=== PATIENT | male | born 1935 ===

== ENCOUNTER 2019-10-15 22:51 | Inpatient (IN) | payer MEDICARE ==
[~2019-10-15] VITALS: Ht 177.8 cm; Wt 92.7 kg
--- NOTE | ~2019-10-15 | HEMODYNAMI ---
PATIENT:ROSA MASSEY MEDICAL RECORD: [id number] : 35 LOCATION:[facility] D.[address] [facility]# [id number] ADMISSION DATE: 10/15/19 Generatedon:10/20/201910:31 Patient name: ROSA MASSEY Patient #: [id number] SSN: : Date of study: 10/20/2019 Page: Of Hemodynamic Procedure Report Patient Data Patient Demographics Procedure consent was obtained First Name: ROSA Gender: Male Last Name: SHILPA : 1935 Patient #: [id number] Age: 84 year(s) Race: Additional ID: [id number] Contact details Address: [address] [place] [address] TO [facility] [address] State: [place] City: [facility] Zip code: [address] Past Medical History Allergies: No known allergies Admission Admission Data Admission Date: 10/15/2019 Admission Time: 23:56 Arrival Date: 10/20/2019 Arrival Time: 0:00 Admit Source: Other Insurance Payor: Private Room #: D.2312 [facility] insurance [facility] #: [id number] Height (in.): 70 BSA: 2.06 (m2) Height (cm.): 177.8 BMI: 27.89 (kg/m2) Weight (lbs.): 194.4 Weight (kg.): 88.18 Lab Results Lab Result Date: 10/20/2019 Lab Result Time: 0:00 Biochemistry Name Units Result Min Max BUN mg/dl 20 --(----)*- 7 18 Creatinine mg/dl 1.4 --(----)*- 0.6 1.3 eGFR ml/min 51 *-(----)-- 90 120 NONAFRICAN CBC Name Units Result Min Max Hematocrit % 34 *-(----)-- 42 54 Hemoglobin g/dl 11.5 *-(----)-- 13.5 17.5 Procedure Procedure Types Cath Procedure Diagnostic Procedure [facility] w/Coronaries PCI Procedure Coronary Stent Coronary Stent Initial Hemochron ACT Test Procedure Description Procedure Date Procedure Date: 10/20/2019 Procedure Start Time: 9:51 Procedure End Time: 10:30 Procedure Staff Name Function John Moreno MD Performing Physician Dell Rodríguez RN Nurse Ivett Dotson RT Scrub Sandra Mendoza RT Monitor Procedure Data Cath Procedure Fluoroscopy Diagnostic fluoroscopy Total fluoroscopy Time: 5.9 time: 5.9 min min Diagnostic fluoroscopy Total fluoroscopy dose: dose: 1378 mGy 1378 mGy Contrast Material Contrast Material Type Amount (ml) Isovue 370 112 Entry Location Entry Primary Successful Side Size Upsize Upsize Entry Closure Succes sful Closure Location (Fr) 1 (Fr) 2 (Fr) Remarks Device Remarks Femoral Right 5 Fr 6 Fr Exoseal artery Short Estimated blood loss: 10 ml Diagnostic catheters Device Type Used For End Catheter Placement MULTIPACK JL 4.0 5Fr Procedure catheter MULTIPACK 3DRC 5Fr Procedure catheter MULTIPACK Pigtail 5 Fr Procedure catheter Procedure Complications No complications Procedure Medications Medication Administration Route Dosage Oxygen 100 Fentanyl I.V. 325 mcg/hr Diprivan 1% I.V. 10 mcg/kg/min (Propofol) 0.9% NaCl I.V. 50 ml/hr Lidocaine 2% added to field 20 Heparin Flush Bag added to field 2 bags (1000units/500ml NS) Heparin Bolus I.V. 8500 units Plavix 600 mg Hemodynamics Rest BSA: 2.06 (m2) HGB: 11.5 (g/dl) O2 Consumption: Estimated: 241.29 (ml/min) O2 Co nsumption indexed: Estimated:117.13 (ml/min/m) Heart Rate: 79 (bpm) Pressure Samples Time Site Value (mmHg) Purpose Heart Use Rate(bpm) 9:59 LV 106/24,45 Snapshot 84 9:59 AO 92/48(65) Pullback 82 9:59 LV 91/2,15 Pullback 82 Gradients Valve Time Site 1 Site 2 Mean SEP/DFP Peak To Heart Use (mmHg) (sec/min) Peak Rate (mmHg) (bpm) Aortic 9:59 LV AO 0 9 0 82 91/2,15 92/48(65) Calculations Valve P-P Mean Valve Index Valve Source Name Gradient Area Flow (cm2) Aortic 0 0 0 0 Snapshots Pre Cath Intra NCS Post Cath Vital Signs Time Heart Resp SPO2 etCO2 NIBP (mmHg) Rhythm Pain Sedation Rate (ipm) (%) (mmHg) Status Level (bpm) 9:28:34 82 22 100 0 102/64(82) NSR 0 (11) 5(A) , No pain 9:32:40 79 22 100 0 94/56(73) NSR 0 (11) 5(A) , No pain 9:36:44 78 21 100 0 91/55(71) NSR 0 (11) 5(A) , No pain 9:40:45 78 22 100 0 87/56(67) NSR 0 (11) 5(A) , No pain 9:44:45 79 21 100 0 90/58(72) NSR 0 (11) 5(A) , No pain 9:48:47 77 21 100 0 90/55(69) NSR 0 (11) 5(A) , No pain 9:52:43 89 20 100 0 108/71(90) NSR 0 (11) 5(A) , No pain 9:56:48 83 21 100 0 105/66(83) NSR 0 (11) 5(A) , No pain 10:00:52 81 22 100 0 103/64(81) NSR 0 (11) 5(A) , No pain 10:04:56 80 21 100 0 104/62(82) NSR 0 (11) 5(A) , No pain 10:09:02 81 21 100 0 94/59(73) NSR 0 (11) 5(A) , No pain 10:12:59 89 22 100 0 103/71(83) NSR 0 (11) 5(A) , No pain 10:16:59 94 21 100 0 120/77(98) NSR 0 (11) 5(A) , No pain 10:20:58 102 26 100 0 133/92(115) NSR 0 (11) 5(A) , No pain 10:25:02 104 22 100 0 135/96(115) NSR 0 (11) 5(A) , No pain Medications Time Medication Route Dose Verified Delivered Reason Notes Effectiveness by by 9:10:01 Diprivan 1% I.V. 10 John Dell Per physician via pump (Propofol) mcg/kg/min Josh Rodríguez RN 9:10:24 Fentanyl I.V. 325 mcg/hr John Buffie Per physician via pump Josh Rodríguez RN 9:10:33 0.9% NaCl I.V. 50 ml/hr John Buffie Per physician via pump Josh Rodríguez RN 9:10:52 Oxygen intubated 100% John Buffie Per physician transported on vent Josh Rodríguez RN to sleep lab technologist on vent. 9:36:43 Lidocaine 2% added to 20ml vial John John for local via pump field Josh Moreno MD anesthetic 9:36:54 Heparin Flush added to 2 bags John John used for via pump Bag field Josh Moreno MD procedure (1000units/500ml NS) 10:05:09 Heparin Bolus I.V. 8500 units John Buffie for verified Josh Rodríguez RN anticoagulation with dr moreno 10:25:45 Plavix via 600 mg John Buffie for ngtube Josh Rodríguez RN antiplatelet therapy Procedure Log Time Note 8:57:34 Arrival Date: 10/20/2019 12:00:00 AM 8:57:35 Admit Source: Other 8:59:27 Patient Height : 70 inches 8:59:42 Patient Weight : 194.4 lbs 8:59:50 Insurance Payor : Private health insurance 9:00:11 Diagnostic Cath Status : Urgent 9:00:17 Dell Rodríguez RN sent for patient. Start room use. 9:01:23 Lab Result : Hemoglobin 11.5 g/dl 9:01:23 Lab Result : eGFR NONAFRICAN 51 ml/min 9:01:23 Lab Result : BUN 20 mg/dl 9:01:23 Lab Result : Creatinine 1.4 mg/dl 9:01:23 Lab Result : Hematocrit 34 % 9:03:05 Informed consent obtained and on chart 9:03:30 Procedure Status Urgent Heart Cath (IP). 9:03:37 ACC Patient presents with Non-STEMI CCS Anginal Class 2--Slight limitation of ordinary activity. 9:03:39 Time tracking: Regular hours (M-F 7:00 - 5:00) 9:03:43 Plan of Care:Hemodynamics will remain stable., Cardiac rhythm will remain stable., Comfort level will be maintained., Respiratory function will remain adequate., Patient/ family verbilizes understanding of procedure., Procedure tolerated without complication., Recovers from procedure without complications.. 9:03:46 Pre-procedure instructions explained to patient. 9:03:47 Pre-op teaching completed and patient verbalized understanding. 9:03:55 H&P Date Dictated: 10/15/2019 Within 30 days and on chart.. 9:03:58 Family unavailable. 9:04:00 Patient NPO since Midnight. 9:04:08 Patient allergic to No known allergies 9:04:17 Lab results completed and on chart. 9:04:20 Stress Test: no; N/A ? 9:04:22 Alarms reviewed by R. N. 9:04:22 Sharps counted by scrub and verified by R.N. 9:10:01 Diprivan 1% (Propofol) 10 mcg/kg/min I.V. was administered by Dell Rodríguez RN; Per physician; via pump Verbal order read back and verified. 9:10:13 Patient received from ICU to CCL 2 On ventilator. Tansferred to table in Supine position. 9:10:20 Warm blankets applied, and adrian hugger turned on for patient comfort. 9:10:21 Correct patient and procedure confirmed by team. 9:10:21 ECG and BP/O2 sat monitors applied to patient. 9:10:24 Fentanyl 325 mcg/hr I.V. was administered by Dell Rodríguez RN; Per physician; via pump Verbal order read back and verified. 9:10:33 0.9% NaCl 50 ml/hr I.V. was administered by Dell Rodríguez RN; Per physician; via pump Verbal order read back and verified. 9:10:52 Oxygen 100% intubated on vent was administered by Dell Rodríguez RN; Per physician; transported to sleep lab technologist on vent. Verbal order read back and verified. 9:27:34 Vital chart was started 9:34:38 Is the patient allergic to Iodine/contrast media? No. 9:34:40 Baseline sample Acquired. 9:34:41 Full Disclosure recording started 9:34:44 Rhythm: sinus rhythm 9:34:49 Was the patient premedicated? No 9:34:50 Is patient on blood thinner?Unknown 9:34:53 Patient diabetic? No. 9:34:54 ----Pre-sedation anethsthesia assessment.---- 9:34:59 Previous problem with sedation/anesthesia? No ? 9:35:02 Snore? Yes 9:35:03 Sleep apnea? Unknown 9:35:05 Deviated septum? No 9:35:09 Opens mouth fully? N/A 9:35:11 Sticks out tongue? N/A 9:35:21 Airway obstruction? Yes ON VENT 9:35:24 Dentures? No ? 9:35:33 Patient pain scale 0/10 ?. 9:36:07 IV patent on arrival in Lt subclavian with 0.9% NaCl at O. 9:36:13 Right groin area was prepped with chlora-prep and draped in sterile fashion 9:36:16 Use device set Femoral Dx 9:36:17 ACIST Syringe (32224) opened to sterile field. 9:36:17 Bag Decanter (2002S) opened to sterile field. 9:36:18 Medline Cath Pack ([id number]) opened to sterile field. 9:36:19 ACIST Hand Control (51094) opened to sterile field. 9:36:19 ACIST Manifold (72121) opened to sterile field. 9:36:21 DIAGNOSTIC Multipack 5Fr catheter set (FI0324) opened to sterile field. 9:36:22 SHEATH 5FR [place] (NOB780) opened to sterile field. 9:36:23 EMERALD Guide Wire (600-875) opened to sterile field. 9:36:35 --------ALL STOP TIME OUT------ 9:36:35 Final Timeout: patient, procedure, and site verified with staff and physician. All members of the team are in agreement. 9:36:37 Right groin site verified by team. 9:36:40 Fire Safety Assessment: A--An alcohol-based skin anteseptic being used preoperatively., C--Open oxygen or nitrous oxide is being used., D--An ESU, laser, or fiber-optic light is being used. 9:36:43 Lidocaine 2% 20ml vial added to field was administered by John Moreno MD; for local anesthetic; via pump Verbal order read back and verified. 9:36:45 Physical assessment completed. ASA score P 2 - A patient with mild systemic disease as per John Moreno MD. 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 9:36:51 Maximum allowable contrast dose (3.7 X eGFR X 0.75)142 ml. 9:36:54 Heparin Flush Bag (1000units/500ml NS) 2 bags added to field was administered by John Moreno MD; used for procedure; via pump Verbal order read back and verified. 9:36:55 Sedation plan: IV Moderate Sedation Medication:Versed, Fentanyl 9:51:16 Procedure started. 9:51:34 Local anesthetic to right femoral artery with Lidocaine 2% by John Moreno MD.INITIAL ACCESS ONLY 9:53:04 A 5 Fr sheath was inserted into the Right Femoral artery 9:53:17 A MULTIPACK JL 4.0 5Fr catheter was advanced over the wire and used for Procedure. 9:54:30 LCA angiography performed. 9:55:00 Injector settings: Ml/sec: 3, Volume: 6, 9:55:48 Catheter exchanged over wire. 9:55:54 A MULTIPACK 3DRC 5Fr catheter was advanced over the wire and used for Procedure. 9:57:06 RCA angiography performed. 9:57:09 Injector settings: Ml/sec: 3, Volume: 6, 9:57:41 Catheter exchanged over wire. 9:58:36 A MULTIPACK Pigtail 5 Fr catheter was advanced over the wire and used for Procedure. 9:58:47 LV gram done using JEREZ 9:58:50 Injector settings: Ml/sec: 5, Volume: 15, 9:59:07 LV hemodynamics recorded. 9:59:18 EF : 25 % 10:00:27 Use device set MORENO PCI 10:01:16 Catheter exchanged over wire. 10:01:17 Proceeding to intervention. 10:01:27 INFLATOR Merit BasixCompak (PB8335) opened to sterile field. 10:01:28 TUBING High Pressure Extension Tubing (Moreno) ([id number]) opened to sterile field. 10:01:39 SHEATH 6FR [place] (RGZ458) opened to sterile field. 10:01:54 Sheath upsized to a 6 Fr Short. 10:02:50 GUIDE 6FR AR 1.0 catheter (IJ0KY81) opened to sterile field. 10:03:41 WHISPER 300cm guide wire ([id number]) opened to sterile field. 10:03:50 6 Fr AR 1.0 guide catheter was inserted over the wire 10:04:05 Pre PCI Site: [place] RCA has 99% stenosis. 10:05:03 WHISPER 300 wire advanced. 10:05:09 Heparin Bolus 8500 units I.V. was administered by Dell Rodríguez RN; for anticoagulation; verified with dr moreno Verbal order read back and verified. 10:05:33 Wire advanced across lesion. 10:08:31 Inflate balloon Inflation number: 1 A EUPHORA 2.0 x 20 Balloon ([id number]) was prepped and advanced across the Prox RCA 99, then inflated to 12 TY for 0:00 (min:sec) . 10:08:58 Inflation number: 2 The EUPHORA 2.0 x 20 Balloon ([id number]) was reinflated across the Prox RCA , to 13 TY for 0:00 (min:sec) . 10:09:23 Inflation number: 3 The EUPHORA 2.0 x 20 Balloon ([id number]) was reinflated across the Prox RCA , to 14 TY for 0:00 (min:sec) . 10:10:01 Inflation number: 4 The EUPHORA 2.0 x 20 Balloon ([id number]) was reinflated across the Prox RCA , to 13 TY for 0:00 (min:sec) . 10:10:29 Balloon removed over the wire. 10:13:31 Place stent Inflation Number: 5 A INTEGRITY RX 2.5 x 26 stent ([id number]) was prepped and advanced across the Prox RCA . The stent was deployed at 14 TY for 0:00 (min:sec) . 10:15:31 Stent catheter was removed intact over wire. 10:18:00 Place stent Inflation Number: 1 A INTEGRITY RX 2.5 x 12 stent ([id number]) was prepped and advanced across the Mid RCA . The stent was deployed at 14 TY for 0:00 (min:sec) . 10:19:43 Wire removed. 10:19:44 Guide catheter removed. 10:19:48 EXOSEAL 6Fr (EX600) opened to sterile field. 10:20:02 Sheath removed intact; hemostasis achieved with Exoseal to the Right Femoral artery. 10:20:35 Fluoroscopy time 05.90 minutes. 10:20:39 Fluoroscopy dose: 1378 mGy 10:20:39 Flurop Dose total: 1378 10:20:46 Dose Area Product 47227 mGy/cm. 10:20:50 Contrast amount:Isovue 370 112ml. 10:20:51 Procedure ended.(Physican Out) 10:20:58 Maximum allowable dose exceeded? No. 10:20:59 Sharps counted by scrub and verified by R.N. 10:21:04 Post-op/insertion site Right Femoral artery dressed using a 4 x 4 and Tegaderm. 10:21:08 Post right femoral artery:stable, soft, clean and dry 10:21:10 Post Procedure Pulses reassessed and unchanged 10:21:15 Post-procedure physical assessment completed. ASA score P 2 - A patient with mild systemic disease as per John Moreno MD. 10:21:22 Post procedure rhythm: sinus tachycardia 10:21:25 Estimated blood loss: 10 ml 10:21:26 Post procedure instruction explained to patient.Patient verbalizes understanding. 10:21:27 Patient needs reinforcement of post procedure teaching. 10:22:10 Procedure type changed to Cath procedure, Diagnostic procedure, LHC, C w/Coronaries, PCI procedure, Coronary Stent, Coronary Stent Initial, Hemochron ACT Test 10:25:45 Plavix 600 mg via ngtube was administered by Dell Rodríguez RN; for antiplatelet therapy; Verbal order read back and verified. 10:26:26 Procedure and supply charges have been captured, reviewed, submitted and are correct. 10:26:31 Procedure Complication : No complications 10:26:36 [facility] Findings: MVD- PCI performed (see procedure note) 10:26:37 ACT drawn and resulted at out of range high seconds. (normal therapeutic range 180-240 seconds). 10:26:37 Operative report dictated upon procedure completion. 10:26:38 See physician's report for complete and final results. 10:26:45 Patient transfered to ICU with Bed. 10:27:01 ACC-PCI Only Patient was given prescriptions, or instructed by John Moreno MD to start/continue the following medications upon discharge: Plavix 10:30:02 Procedure ended. 10:30:02 Full Disclosure recording stopped Intervention Summary Intervention Notes Time ActionType Lesion and Equipment Action# Pressure Duration Attributes Used 10:08:31 Inflate Prox RCA EUPHORA 2.0 1 12 00:00 balloon x 20 Balloon ([id number]) 10:08:58 Reinflate Prox RCA EUPHORA 2.0 2 13 00:00 balloon x 20 Balloon ([id number]) 10:09:23 Reinflate Prox RCA EUPHORA 2.0 3 14 00:00 balloon x 20 Balloon ([id number]) 10:10:01 Reinflate Prox RCA EUPHORA 2.0 4 13 00:00 balloon x 20 Balloon ([id number]) 10:13:31 Place stent Prox RCA INTEGRITY RX 5 14 00:00 2.5 x 26 stent ([id number]) 10:18:00 Place stent Mid RCA INTEGRITY RX 1 14 00:00 2.5 x 12 stent ([id number]) Device Usage Item Name Manufacture Quantity Catalog Hospital Part Current Minimal Lot# / Number Charge Number Stock Stock Serial# Code ACIST Acist 1 50437 722235 806311 056966 20 Syringe ChatLingual (13506) Systems Inc Bag Decanter Microtek 1 2001S 640690 59797 466225 5 (2001S) Medical Inc. Medline Cath Medline 1 [id number] 471432 01184 821653 5 Pack ([id number]) ACIST Hand Acist 1 73210 185551 314291 573720 5 Control Medical (08830) Systems Inc ACIST Acist 1 56847 925500 302603 316420 5 Manifold Medical (31998) Systems Inc DIAGNOSTIC Cardinal 1 KO1596 409552 54110 996084 30 MultipPocket Video Health 5Fr catheter set (WJ7586) SHEATH 5FR Terumo 1 UTN067 250987 069026 787815 5 [place] (CII851) EMERALD Cardinal 1 502455 448214 628653 698579 5 Guide Wire [facility] (502455) MULTIPACK JL Cardinal 1 517338 5 4.0 5Fr Health catheter MULTIPACK Cardinal 1 204310 5 3DRC 5Fr Health catheter MULTIPACK Cardinal 1 768590 5 Pigtail 5 Fr Health catheter INFLATOR Merit 1 KB2492 068078 848490 713819 15 Merit Medical BasixCompak (PX5822) TUBING High Merit 1 DT1252E 833946 86050 181437 10 Pressure Medical Extension Tubing (Moreno) (ML1991O) SHEATH 6FR Terumo 1 TAR579 233815 163266 981181 40 [place] (OLU562) GUIDE 6FR AR Medtronic 1 PX4IP04 476687 84263 614396 1 1.0 catheter (MQ0JJ82) WHISPER Graves 1 [id number] 083139 935616 741383 5 300cm guide Vascular wire (0425280RU) EUPHORA 2.0 Medtronic 1 [id number] 587584 060078 285853 5 [id number] x 20 Balloon ([id number]) INTEGRITY RX Medtronic 1 [id number] 339540 357792 660853 5 [id number] 2.5 x 26 stent ([id number]) INTEGRITY RX Medtronic 1 [id number] 948949 505399 948227 5 [id number] 2.5 x 12 stent ([id number]) EXOSEAL 6Fr Cardinal 1 EX600 384963 460688 491047 10 (EX600) Health Signature Audit [place] Stage Time Signature Unsigned Intra-Procedure 10/20/2019 Sandra Mendoza 10:30:23 AM RT(R) Intra-Procedure 10/20/2019 Dell Rodríguez RN 10:30:50 AM Intra-Procedure 10/20/2019 John Moreno MD 10:31:10 AM Signatures Performing Physician : Signature : John Moreno MD Date : Time : Nurse : Dell Rodríguez RN Signature : Date : Time : Monitor : Sandra Mendoza Signature : RT Date : Time : [place] [id number] JUMANA OCONNELL [id number]
[2019-10-15 23:30] VITALS: BP 127/81
[2019-10-15 23:35] LABS: HEMATOCRIT 34.9 % (42.0-54.0); HEMOGLOBIN 11.5 g/dL (13.5-17.5); LYMPHOCYTES 8.8 % (15-50); MCH 31.7 pg (26.0-34.0); MCV 96.1 fL (80.0-100.0); MEAN PLATELET VOLUME 8.3 fL (7.4-10.4); NEUTROPHILS 83.2 % (40-80); PLATELET COUNT 473 10x3/uL (130-400); RBC 3.63 10x6/uL (4.20-6.10); RDW 12.7 % (11.5-14.5); WBC 17.4 10x3/uL (4.8-10.8)
[2019-10-15 23:50] LABS: ANION GAP 13.5 mmol/L (8-16); CALCIUM 8.8 mg/dL (8.5-10.1); CARBON DIOXIDE 26.2 mmol/L (21.0-32.0); CREATININE - SERUM 1.6 mg/dL (0.6-1.3); INR 3.74 (0.85-1.17); POTASSIUM - SERUM 4.7 mmol/L (3.5-5.1); PROTIME 36.3 SECONDS (11.6-15.0)
[2019-10-15 23:58] LABS: APTT 43.9 SECONDS (22.8-39.4)
[2019-10-16] VITALS (41 sets, daily range): BP systolic 77–130; BP diastolic 52–80; Ht 177.8 cm; Wt 92.7 kg
--- NOTE | 2019-10-16 | NUR ---
PT PLACED IN SOFT WRIST [employer]S SEE PAPER FORM.
[2019-10-16 00:02] LABS: BILIRUBIN NEGATIVE (NEGATIVE); GLUCOSE NEGATIVE (NEGATIVE); KETONE NEGATIVE (NEGATIVE); NITRITE NEGATIVE (NEGATIVE); UROBILINOGEN NORMAL (NORMAL)
[2019-10-16 00:04] LABS: BACTERIA FEW /hpf (NEGATIVE); EPITHELIAL CELLS 0-5 /hpf (0-5); RED CELLS - URINE 0-5 /hpf (0-5); WHITE CELLS - URINE 0-5 /hpf (NEGATIVE)
[2019-10-16 00:11] LABS: ALBUMIN 2.5 g/dL (3.4-5.0); BILIRUBIN - TOTAL 0.72 mg/dL (0.2-1.3); MAGNESIUM - SERUM 2.1 mg/dL (1.8-2.4); PROTEIN - SERUM 6.4 g/dL (6.4-8.2)
[2019-10-16 00:20] LABS: TROPONIN-I 3.587 ng/mL (0.000-0.060)
--- NOTE | 2019-10-16 00:32 | NUR ---
BLOOD CULTURES DRAWN SENT TO LAB.
--- NOTE | 2019-10-16 01:51 | NUR ---
got in report dr mane aware of vent.
--- NOTE | 2019-10-16 07:18 | NUR ---
lab stated blood was bad and needed to be drawn. i had to call because they canceled labs. they did not call me that it was cancelled. stated it took 3 of us to stick the patient and we each tried twice and struggled with the first draw.
[2019-10-16 10:57] LABS: ALBUMIN 2.2 g/dL (3.4-5.0); ALKALINE PHOSPHATASE 62 U/L (30-120); ALT (SGPT) 17 U/L (10-68); CALC OSMOLALITY 263 mosm/kg (275-300); CARBON DIOXIDE 24.7 mmol/L (21.0-32.0); CHLORIDE - SERUM 96 mmol/L (98-107); CKMB 6.1 U/L (0.0-3.6); CREATINE KINASE 92 UL (21-232); CREATININE - SERUM 1.4 mg/dL (0.6-1.3); GLUCOSE 148 mg/dL (74-106); POTASSIUM - SERUM 4.8 mmol/L (3.5-5.1); PROTEIN - SERUM 5.1 g/dL (6.4-8.2); SODIUM 129 mmol/L (136-145); UREA NITROGEN 19 mg/dL (7-18); eGFR NON AFRICAN AMERICAN 51 mL/min (90-120)
--- NOTE | 2019-10-16 11:15 | NUR ---
DR WARNER HERE. CONSULT DR RANDLE. VALERI NOTIFIED.
[2019-10-16 11:18] LABS: BASOPHILS 0.2 % (0-2); EOSINOPHILS 0.3 % (0-7); HEMATOCRIT 30.2 % (42.0-54.0); HEMOGLOBIN 10.1 g/dL (13.5-17.5); IMMATURE GRANULOCYTES 0.3 % (0-5); LYMPHOCYTES 10.7 % (15-50); MCHC 33.4 g/dL (31.0-37.0); MCV 95.6 fL (80.0-100.0); MEAN PLATELET VOLUME 9.3 fL (7.4-10.4); MONOCYTES 11.4 % (2-11); NEUTROPHILS 77.1 % (40-80); PLATELET COUNT 381 10x3/uL (130-400); RBC 3.16 10x6/uL (4.20-6.10); RDW 12.8 % (11.5-14.5)
[2019-10-16 11:21] LABS: WBC 10.7 10x3/uL (4.8-10.8)
--- NOTE | 2019-10-16 15:14 | NUR ---
ATTEMPT TO CALL ALVARO THE DAUGHTER FOR UPDATE INFORMATION. PHONE NUMBER CANNOT RECIEVED UNKNOWN CALLS.
[2019-10-16 16:50] LABS: CKMB 5.8 U/L (0.0-3.6); CREATINE KINASE 114 UL (21-232)
[2019-10-16 16:58] LABS: TROPONIN-I 8.686 ng/mL (0.000-0.060)
--- NOTE | 2019-10-16 19:16 | NUR ---
CARDIOLOGY PAGED ABOUT TROPONIN
[2019-10-17] VITALS (95 sets, daily range): BP systolic 81–121; BP diastolic 6–91
[2019-10-17 04:29] LABS: BASOPHILS 0.2 % (0-2); HEMATOCRIT 30.9 % (42.0-54.0); IMMATURE GRANULOCYTES 0.4 % (0-5); MCH 31.5 pg (26.0-34.0); MCHC 32.4 g/dL (31.0-37.0); MCV 97.5 fL (80.0-100.0); MEAN PLATELET VOLUME 8.8 fL (7.4-10.4); MONOCYTES 12.6 % (2-11); NEUTROPHILS 72.8 % (40-80); PLATELET COUNT 386 10x3/uL (130-400); RBC 3.17 10x6/uL (4.20-6.10); RDW 13.1 % (11.5-14.5)
[2019-10-17 04:36] LABS: WBC 13.9 10x3/uL (4.8-10.8)
[2019-10-17 04:51] LABS: ANION GAP 9.7 mmol/L (8-16); BILIRUBIN - TOTAL 0.43 mg/dL (0.2-1.3); CALCIUM 7.6 mg/dL (8.5-10.1); CARBON DIOXIDE 26.9 mmol/L (21.0-32.0); CREATININE - SERUM 1.5 mg/dL (0.6-1.3); MAGNESIUM - SERUM 1.8 mg/dL (1.8-2.4); PHOSPHOROUS 2.6 mg/dL (2.5-4.9); POTASSIUM - SERUM 4.6 mmol/L (3.5-5.1); PROTEIN - SERUM 5.8 g/dL (6.4-8.2)
--- NOTE | 2019-10-17 10:15 | NUR ---
DR MACEDO PAGED TO INFORM ABOUT PICC AND POSITIVE BLOOD CULTURES.
--- NOTE | 2019-10-17 10:20 | NUR ---
DR MACEDO RETURN CALL OK FOR PICC AND OK ON ANTIBIOTICS FOR POSITIVE BLOOD CULTURES.
--- NOTE | 2019-10-17 16:15 | NUR ---
MIKEL DILLON IN ROOM PLACING PICC LINE. DR MACEDO NOTIFIED OF TEMP.
[2019-10-17 16:35] LABS: INR 3.04 (0.85-1.17)
--- NOTE | 2019-10-17 21:09 | NUR ---
1900 REPORT RECEIVED, SHIFT ASSESSMENT COMPLETE, PLEASE SEE FLOW SHEETS FOR DETAILS. NO S&S PAIN/DISTRESS TO NOTE. INTUBATED AND LIGHTLY SEDATED, TITRATING LEVOPHED PER ORDERS. RESTRAINTS CHECKED AND RETIED, TURNING AND ORAL CARE PROVIDED. COLOSTOMY CHECKED, NO OUTPUT TO NOTE. HEMODYNAMICALLY STABLE AT THIS TIME. 2100 ORAL CARE AND TURNING PROVIDED, TITRATING LEVOPHED PER ORDERS. TURNING AND ORAL CARE PROVIDED. NO S&S PAIN/DISTRESS TO NOTE. HEMODYNAMICALLY STABLE AT THIS TIME, WILL CONTINUE CURRENT PLAN OF CARE.
--- NOTE | 2019-10-17 23:00 | NUR ---
REASSESSMENT COMPLETE, PLEASE SEE FLOW SHEETS FOR DETAILS. HEMODYNAMICALLY STABLE AT THIS TIME. TITRATING LEVOPHED PER ORDERS. ORAL CARE AND TURNING PROVIDED. WILL CONTINUE CURRENT PLAN OF CARE.
[2019-10-18] VITALS (56 sets, daily range): BP systolic 89–139; BP diastolic 51–82
[2019-10-18 04:32] LABS: BASOPHILS 0.1 % (0-2); EOSINOPHILS 2.4 % (0-7); HEMATOCRIT 30.8 % (42.0-54.0); HEMOGLOBIN 9.9 g/dL (13.5-17.5); IMMATURE GRANULOCYTES 0.2 % (0-5); LYMPHOCYTES 8.9 % (15-50); MCH 31.8 pg (26.0-34.0); MCHC 32.1 g/dL (31.0-37.0); MEAN PLATELET VOLUME 8.6 fL (7.4-10.4); MONOCYTES 10.7 % (2-11); NEUTROPHILS 77.7 % (40-80); PLATELET COUNT 359 10x3/uL (130-400); RBC 3.11 10x6/uL (4.20-6.10); RDW 13.4 % (11.5-14.5); WBC 12.1 10x3/uL (4.8-10.8)
[2019-10-18 04:55] LABS: ALBUMIN 1.8 g/dL (3.4-5.0); ANION GAP 14.9 mmol/L (8-16); BILIRUBIN - TOTAL 0.68 mg/dL (0.2-1.3); CALCIUM 7.6 mg/dL (8.5-10.1); CARBON DIOXIDE 23.5 mmol/L (21.0-32.0); CREATININE - SERUM 1.4 mg/dL (0.6-1.3); POTASSIUM - SERUM 4.4 mmol/L (3.5-5.1); PROTEIN - SERUM 5.6 g/dL (6.4-8.2)
--- NOTE | 2019-10-18 05:00 | NUR ---
ORAL CARE AND TURNING PROVIDED, TOLERATED WELL. HEMODYNAMICALLY STABLE AT THIS TIME, WILL CONTINUE PLAN OF CARE.
--- NOTE | 2019-10-18 06:28 | NUR ---
0100 ORAL CARE AND TURNING PROVIDED. 0300 REASSESSMENT COMPLETE, PLEASE SEE FLOW SHEETS FOR DETAILS, ORAL CARE AND TURNING PROVIDED, HEMODYNAMICALLY STABLE AT THIS TIME, WILL CONTINUE PLAN OF CARE.
--- NOTE | 2019-10-18 07:30 | NUR ---
BEDSIDE SHIFT REPORT REC'D. AM ROUNDS COMPLETED. INTRODUCED MYSELF TO PT PRIMARY RN FOR TODAYS SHIFT. PT IS AWAKE WITH EYES OPEN AND VERY CALM COOPERATIVE. PT IS VENTED AND RESPIRATORY AT BEDSIDE TO SUCTION. PT HAS A L.NARE NGT TO LIS WITH SCANT AMOUNT OF BROWN LIQUID COMING OUT. PT HAS A R.SHOULDER 18GUAGE PIV SL WITH REDDNESS NOT NEEDING THIS IV SO I D/C WITH CATHETER TIP FULLY INTACT. PT HAS A R.FA PIV SL AND PATENT. PT HAS A L.UPPER ARM PICC LINE WITH BIOPATCH AND DRSG CDI, SWAB CAPS IN USE. LUNGS HAVE SLIGHT FRICTION RUB NOTED BUT MAINLY CTA THROUGHOUT ALL LOBES. HEART SOUNDS S1S2 NOTED. PT HAS COLOSTOMY TO HIS LEFT SIDE OF HIS ABDOMEN SCANT OUTPUT, SEALED TO SKIN NO LEAKS NOTED. PT HAS SNIDER CATHETER WITH STAT LOCK SECURED TO HIS LEFT INNER THIGH, SNIDER DRAINING CONCENTRATED URINE OFF L.SIDE OF BED. REPOSITIONED PT IN BED FOR COMFORT AND HE APPEARS COMFORTABLE NO GRIMANCING NOTED. PT HAS LEVOPHED DRIP INFUSING WITH STABLE BP TRENDING SBP 120S SO I WEANED DRIP TO 4MCG/MIN. PT HAS FENTANYL DRIP @325MCG/HR ALONG WITH PROPOFOL DRIP TO TRITRATE, CURRENTLY 15MCG/KG/MIN INFUSING @7.9ML/HR, NS @50ML/HR. NO IMMEDIATE NEEDS NOTED AT THIS TIME. WILL REVIEW CHART AND NOTES WITH ORDERS AND CPOC.
[2019-10-18 10:26] LABS: INR 3.08 (0.85-1.17); PROTIME 31.2 SECONDS (11.6-15.0)
--- NOTE | 2019-10-18 10:31 | NUR ---
LEVOPHED DRIP DECREASED TO 2MCG/MIN BP REMAINS STABLE.
--- NOTE | 2019-10-18 10:55 | NUR ---
AT BEDSIDE ROUNDING. NEW ORDERS OBTAINED TO BEGIN TUBE FEED. ORDERED FROM DIETARY WILL BEGIN WHEN WE RECIEVE IT.
--- NOTE | 2019-10-18 11:24 | NUR ---
PTS FENTANYL DRIP EMPTY. SYRINGE CHANGED WITH SECOND RN WITNESS SUKHWINDER DEL ROSARIO. PT AROUSES EASILY AND HAS EYES OPEN. EXPLAINED PLAN OF CARE AND REPOSITIONED PT IN BED. NO CURRENT NEEDS. WILL CTM.
--- NOTE | 2019-10-18 12:12 | NUR ---
TUBE FEEDING INITIATED CURRENTLY GOING @10CC/HR WILL INCREASE TOLERATED IF RESIDUAL STAYS BELOW 200. D/C PTS R.FA PIV IT APPEARED TO BE LEAKING. CATHETER TIP FULLY INTACT. PT RESTING QUIETLY IN BED WITH EYES CLOSED. VSS. NO IMMEDIATE NEEDS NOTED AT THIS TIME. WILL CTM.
--- NOTE | 2019-10-18 12:46 | NUR ---
Nutrition follow-up: Pt remains intubated, sedated with propofol @ 13.3 ml/hr Pulmocare started @ 25 ml/hr with gradual increase to goal rate of 50 ml/hr with 25 ml H2O flush Q hour Labs reviewed Wt: 194# RDN placed nursing message re: tube feeding rate and flush RDN following.
--- NOTE | 2019-10-18 12:59 | NUR ---
SHUT OFF PTS LEVOPHED DRIP TO SEE IF HE CAN TOLERATE WE'VE BEEN SUCCESSFUL TO WEAN HIM DOWN ALL DAY AND VSS. WILL CTM.
--- NOTE | 2019-10-18 15:06 | NUR ---
BEDSIDE SHIFT REPORT GIVEN. NEW NURSE TAKING OVER. NO CURRENT NEEDS.
[2019-10-19] VITALS (24 sets, daily range): BP systolic 87–116; BP diastolic 46–81
[2019-10-19 05:23] LABS: BASOPHILS 0.1 % (0-2); HEMATOCRIT 27.4 % (42.0-54.0); HEMOGLOBIN 8.8 g/dL (13.5-17.5); IMMATURE GRANULOCYTES 0.5 % (0-5); LYMPHOCYTES 6.6 % (15-50); MCH 31.7 pg (26.0-34.0); MCHC 32.1 g/dL (31.0-37.0); MCV 98.6 fL (80.0-100.0); MONOCYTES 7.9 % (2-11); NEUTROPHILS 80.9 % (40-80); PLATELET COUNT 363 10x3/uL (130-400); RBC 2.78 10x6/uL (4.20-6.10); RDW 13.4 % (11.5-14.5)
[2019-10-19 05:25] LABS: WBC 8.6 10x3/uL (4.8-10.8)
[2019-10-19 05:32] LABS: ALBUMIN 1.5 g/dL (3.4-5.0); ANION GAP 13.5 mmol/L (8-16); BILIRUBIN - TOTAL 0.87 mg/dL (0.2-1.3); CALCIUM 7.7 mg/dL (8.5-10.1); CARBON DIOXIDE 20.7 mmol/L (21.0-32.0); CREATININE - SERUM 1.3 mg/dL (0.6-1.3); POTASSIUM - SERUM 4.2 mmol/L (3.5-5.1); PROTEIN - SERUM 5.4 g/dL (6.4-8.2)
[2019-10-19 06:43] LABS: C-REACTIVE PROTEIN 38.8 mg/dL (0.0-0.9)
--- NOTE | 2019-10-19 06:57 | NUR ---
REPORT RECEIVED. ASSESSMENT COMPLETE PER FLOW SHEET. VSS. ORAL ENDOTRACH CARE ADM. REPOSITIONED FOR COMFORT WILL CONTINUE TO MONITOR
--- NOTE | 2019-10-19 14:25 | EC ---
PATIENT:ROSA MASSEY DATE OF SERVICE: 10/15/19 SEX: M MEDICAL RECORD: [id number] DATE OF : 35 LOCATION:[facility] D231 AGE OF PATIENT: 84 ADMISSION DATE: 10/15/19 REFERRING PHYSICIAN: INTERPRETING PHYSICIAN: PABLITO GAY MD ECHOCARDIOGRAM REPORT ECHO CHARGES 4 ECHO COMPLETE Date: 10/16/19 CLINICAL DIAGNOSIS: NSTEMI, ASSESS EF AND FOR CLOTS ECHOCARDIOGRAPHIC MEASUREMENTS (adult normal given) AC root (d.<3.7cm) 3.6 cm LV Septum d (<1.2 cm> 1.1 cm Valve Excursion 1.5 cm LV Septum (systole) 1.4 cm Left Atria (s.<4.0cm> 4.7 cm LVPW d(<1.2cm) 1.3 cm RV (d.<2.3cm) 4.2 cm LVPW (sytole) 1.5 cm LV diastole(<5.6CM) 5.4 cm MV E-F(>70mm/sec) cm LV systole 4.0 cm LVOT Diameter 1.6 cm MV exc.(>10mm) 1.8 cm Est.ejection fraction (50-75%) % DOPPLER: LVIT cm/sec A 73.0 cm/sec E 80.0 cm/sec LA cm/sec RVSP 18 mmHg LVOT 88 cm/sec AOP1/2T 656 m/s Asc. Ao 134 cm/sec RVOT 76 cm/sec RA cm/sec PA 102 cm/sec AV Gradient Peak 7.14 mmHg AV Mean 4.37 mmHg AV Area 1.2 cm MV Gradient Peak 4.09 mmHg MV Mean 1.73 mmHg MV Area cm COMMENTS: Base Engineer: 2 JAIRON BURNS Cardiac Nurse Practitioner: 3 Dr. Abernathy TAPE# PACS Pericardial Effusion N DATE OF SERVICE: Adequate 2D, color flow imaging, spectral Doppler, and M-Mode. No LVH. LV internal dimensions are normal. LV appears to be mildly globally hypo with EF lower limits of normal at 45% to 50%. Aortic valve calcified may be bicuspid; however, by Doppler interrogation, there is no significant stenosis. There is mild AI by color flow imaging. Left atrium is dilated at 4.7 cm. Mitral valve shows no prolapse. Mild MR. Right-sided chambers are grossly normal. Trace TR. ECHOCARDIOGRAM REPORT [id number] ROSA MASSEY TRANSINT:[id number] Voice Confirmation ID: [id number] DOCUMENT ID: [id number] PABLITO GAY MD at 1425 CC: [id number] DICTATION DATE: 10/17/19 1300 MOSS BLEACHER: 10/17/19 2139 ADM IN [place] [id number] [place] [address]
[2019-10-20] VITALS (46 sets, daily range): BP systolic 86–124; BP diastolic 49–88
--- NOTE | 2019-10-20 00:35 | NUR ---
1900 bedside report taken. PT. LYING IN BED EYES CLOSED/ WILL CONTINUE TO MONITOR
--- NOTE | 2019-10-20 00:38 | NUR ---
1100 NO CHANGES, RESTING WITH NO SIGNS OF DISTRESS. CONTINUE TO MONITOR
--- NOTE | 2019-10-20 00:57 | NUR ---
2100 NO CHANGES NOTED AT THIS TIME
--- NOTE | 2019-10-20 02:52 | NUR ---
0100 tube feed at goal of 50 ml/hr. no signs of discomfort noted at this time. will cont. to monitor
--- NOTE | 2019-10-20 02:55 | NUR ---
no changes noted at this time
[2019-10-20 04:09] LABS: BASOPHILS 0 % (0-2); EOSINOPHILS 3.7 % (0-7); HEMATOCRIT 27.1 % (42.0-54.0); HEMOGLOBIN 8.5 g/dL (13.5-17.5); IMMATURE GRANULOCYTES 0.5 % (0-5); LYMPHOCYTES 7.4 % (15-50); MCH 31.5 pg (26.0-34.0); MCHC 31.4 g/dL (31.0-37.0); MCV 100.4 fL (80.0-100.0); MEAN PLATELET VOLUME 8.8 fL (7.4-10.4); MONOCYTES 9.9 % (2-11); NEUTROPHILS 78.5 % (40-80); PLATELET COUNT 319 10x3/uL (130-400); RDW 13.7 % (11.5-14.5); WBC 8.6 10x3/uL (4.8-10.8)
[2019-10-20 04:33] LABS: ALBUMIN 1.2 g/dL (3.4-5.0); ANION GAP 12.2 mmol/L (8-16); BILIRUBIN - TOTAL 1.44 mg/dL (0.2-1.3); CARBON DIOXIDE 22.2 mmol/L (21.0-32.0); CREATININE - SERUM 1.4 mg/dL (0.6-1.3); POTASSIUM - SERUM 4.4 mmol/L (3.5-5.1); PROTEIN - SERUM 4.8 g/dL (6.4-8.2); VANCOMYCIN - RANDOM 23.6 ug/mL (10.0-20.0)
[2019-10-20 04:39] LABS: CALCIUM 6.9 mg/dL (8.5-10.1)
[2019-10-20 05:30] LABS: C-REACTIVE PROTEIN 37.6 mg/dL (0.0-0.9)
--- NOTE | 2019-10-20 06:00 | NUR ---
no changes at this time
--- NOTE | 2019-10-20 07:00 | NUR ---
REPORT RECEIVED. ASSESSMENT COMPLETE PER FLOW SHEET. VSS. PT RESTING COMFORTABLY. WILL CONTINUE TO MONITOR
--- NOTE | 2019-10-20 08:20 | NUR ---
SIDEROGRAPHIST CALLED TO PREOP.
--- NOTE | 2019-10-20 09:15 | NUR ---
PHANI WITH INTERNATIONAL ACCOUNTANT AT BEDSIDE. PT LEFT VSS UPON LEAVING.
--- NOTE | 2019-10-20 09:24 | NUR ---
DECREASED PEEP TO 8
--- NOTE | 2019-10-20 09:30 | NUR ---
ALVARO THE DAUGHTER CALLED GIVEN UPDATE REGAURDING PT IN HOOP RIVETER AT THIS TIME
--- NOTE | 2019-10-20 09:40 | NUR ---
PHANI IN SPORTS TEAM MARKETING INTERN CALLED STATED DR RANDLE WOULD CALL DAUGHTER TO GIVE UDPATE
--- NOTE | 2019-10-20 09:55 | NUR ---
PT IN SPEED BELT SANDER TENDER UNABLE TO DO VENT CHECK
--- NOTE | 2019-10-20 10:26 | NUR ---
NUTRITION F/U NURSING REPORTS PT TOLERATING PULMOCARE AT GOAL RATE 50 CCHR. CURRENTLY OFF FOR CLINICAL DATA SPECIALIST. WILL PROVIDE TUBE FEEDS WHEN RESUMED, MONITOR PT PROGRESS. RD FOLLOWING
--- NOTE | 2019-10-20 10:50 | NUR ---
PT BACK FROM SLICING MACHINE OPERATOR AT THIS TIME. HR 135 BBB SINUS TACK NOTED.
--- NOTE | 2019-10-20 11:21 | NUR ---
DR RANDLE MADE AWARE OF BBB RATE 135,NO NEW ORDERS.
[2019-10-20 13:11] LABS: FUNGUS STAIN Final report (())
--- NOTE | 2019-10-20 14:20 | NUR ---
COMPLETE BB LINEN CHANGE ADM.
[2019-10-20 17:09] LABS: ACID FAST SMEAR Negative (()); AFB SPECIMEN PROCESSING Concentration (())
--- NOTE | 2019-10-20 22:04 | NUR ---
2100 TURNED PT. TO LEFT SIDE. NO CHANGES AT THIS TIME
--- NOTE | 2019-10-20 22:04 | NUR ---
1900 BEDSIDE REPORT RECEIVED
--- NOTE | 2019-10-20 23:43 | NUR ---
2300 NO CHANGES NOTED AT THIS TIME
[2019-10-21] VITALS (25 sets, daily range): BP systolic 86–107; BP diastolic 56–71
--- NOTE | 2019-10-21 02:34 | NUR ---
0100 NO CHANGES NOTED AT THIS TIME, WILL CONTINUE TO MONITOR
--- NOTE | 2019-10-21 03:11 | NUR ---
0300 NO CHANGES NOTED AT THIS TIME.
[2019-10-21 04:56] LABS: BASOPHILS 0.1 % (0-2); EOSINOPHILS 3.8 % (0-7); HEMATOCRIT 29.3 % (42.0-54.0); HEMOGLOBIN 9.3 g/dL (13.5-17.5); IMMATURE GRANULOCYTES 1.3 % (0-5); LYMPHOCYTES 7.7 % (15-50); MCH 31.7 pg (26.0-34.0); MCHC 31.7 g/dL (31.0-37.0); MEAN PLATELET VOLUME 8.6 fL (7.4-10.4); MONOCYTES 10.6 % (2-11); NEUTROPHILS 76.5 % (40-80); PLATELET COUNT 288 10x3/uL (130-400); RBC 2.93 10x6/uL (4.20-6.10); RDW 13.9 % (11.5-14.5); WBC 8.6 10x3/uL (4.8-10.8)
[2019-10-21 05:14] LABS: ALBUMIN 1.2 g/dL (3.4-5.0); ANION GAP 14.3 mmol/L (8-16); BILIRUBIN - TOTAL 0.91 mg/dL (0.2-1.3); CALCIUM 7.6 mg/dL (8.5-10.1); CARBON DIOXIDE 20.2 mmol/L (21.0-32.0); CREATININE - SERUM 1.8 mg/dL (0.6-1.3); POTASSIUM - SERUM 4.5 mmol/L (3.5-5.1); PROTEIN - SERUM 5.2 g/dL (6.4-8.2); VANCOMYCIN - RANDOM 19.6 ug/mL (10.0-20.0)
--- NOTE | 2019-10-21 06:18 | NUR ---
no changes at this time
--- NOTE | 2019-10-21 07:10 | NUR ---
REPORT RECEIVED FROM ANATOMIC PATHOLOGIST AND PATIENT CARE ASSUMED. PATIENT LAYING IN BED ON LEFT SIDE WITH EYES CLOSED AND BREATHING EVENLY ON VENT. WILL CONTINUE WITH PLAN OF CARE.
--- NOTE | 2019-10-21 11:18 | NUR ---
PATIENTS DTR CALLED. SPENT SEVERAL MINUTES DISCUSSING PATIENT AND ANSWERING QUESTIONS TO SATISFACTION .
--- NOTE | 2019-10-21 21:41 | NUR ---
2100 REPOSITIONED pT. ONTO BACK. NO SIGNS OF DISTRESS OR DISCOMFORT AT THIS TIME
--- NOTE | 2019-10-21 22:25 | NUR ---
1900 BEDSIDE REPORT RECEIVED. NO CHANGES AT THIS TIME
[2019-10-22] VITALS (25 sets, daily range): BP systolic 79–126; BP diastolic 56–86
--- NOTE | 2019-10-22 02:08 | NUR ---
2300 NO CHANGES NOTED AT THIS TIME. RESIDUAL OF 40ML NOTED. WILL CONTINUE TO MONITOR
--- NOTE | 2019-10-22 02:09 | NUR ---
0100 PATIENT RESTING QUIETLY, NO SIGNS OF DISCOMFORT OR DISTRESS. WILL CONTINUE TO MONITOR
--- NOTE | 2019-10-22 03:04 | NUR ---
no changes noted at this time. will continue to monitor
[2019-10-22 05:41] LABS: BASOPHILS 0.3 % (0-2); EOSINOPHILS 1.7 % (0-7); HEMOGLOBIN 8.3 g/dL (13.5-17.5); LYMPHOCYTES 6.4 % (15-50); MCH 31.1 pg (26.0-34.0); MCHC 30.7 g/dL (31.0-37.0); MCV 101.1 fL (80.0-100.0); MEAN PLATELET VOLUME 8.8 fL (7.4-10.4); MONOCYTES 10.6 % (2-11); PLATELET COUNT 385 10x3/uL (130-400); RBC 2.67 10x6/uL (4.20-6.10); RDW 14.4 % (11.5-14.5); WBC 11.4 10x3/uL (4.8-10.8)
[2019-10-22 06:02] LABS: ALBUMIN 1.2 g/dL (3.4-5.0); ANION GAP 15.9 mmol/L (8-16); BILIRUBIN - TOTAL 1.31 mg/dL (0.2-1.3); CALCIUM 8.1 mg/dL (8.5-10.1); CARBON DIOXIDE 20.2 mmol/L (21.0-32.0); POTASSIUM - SERUM 5.1 mmol/L (3.5-5.1); PROTEIN - SERUM 5.4 g/dL (6.4-8.2)
[2019-10-22 06:10] LABS: C-REACTIVE PROTEIN 36.2 mg/dL (0.0-0.9)
--- NOTE | 2019-10-22 06:31 | NUR ---
NO CHANGES NOTED
[2019-10-23] VITALS (24 sets, daily range): BP systolic 93–126; BP diastolic 60–77
--- NOTE | 2019-10-23 02:35 | NUR ---
PT DAUGHTER CALLED IN FOR UPDATE, UNABLE TO PROVIDE SECURITY CALL IN CODE. SHE IS LISTED HIS EMERGENCY CONTACT AND SHE WAS ABLE TO VERIFY HER PHONE NUMBER AND ADDRESS INFORMATION THAT WE HAVE ON FILE. CONTACTED [employer] SYSTEM[employer] TECHNICIAN THE DAUGHTER LIVES IN [facility] AND ISNT ABLE TO DRIVE TO RECIEVE THE SECURITY CALL CODE INFORMATION IN PERSON. CODE PROVIDED TO DAUGHTER AT THIS TIME, UPDATE GIVEN ALL QUESTIONS ANSWERED VSS CPOC
--- NOTE | 2019-10-23 13:03 | NUR ---
Nutrition follow-up: Pt with possible aspiration per nurse last night OGT replaced Pt remains intubated, sedated on propofol @ 3.7 ml/hr Pulmocare to resume with goal rate of 50 ml/hr Wt: 203# labs reviewed RDN following.
[2019-10-23 14:46] LABS: BASOPHILS 0.4 % (0-2); HEMATOCRIT 26.4 % (42.0-54.0); HEMOGLOBIN 8.1 g/dL (13.5-17.5); IMMATURE GRANULOCYTES 7.9 % (0-5); LYMPHOCYTES 6.1 % (15-50); MCH 30.8 pg (26.0-34.0); MCHC 30.7 g/dL (31.0-37.0); MCV 100.4 fL (80.0-100.0); MEAN PLATELET VOLUME 8.9 fL (7.4-10.4); MONOCYTES 7.8 % (2-11); NEUTROPHILS 73.8 % (40-80); PLATELET COUNT 418 10x3/uL (130-400); RBC 2.63 10x6/uL (4.20-6.10); RDW 14.4 % (11.5-14.5); WBC 12.4 10x3/uL (4.8-10.8)
[2019-10-23 15:05] LABS: ALBUMIN 1.1 g/dL (3.4-5.0); ANION GAP 15.5 mmol/L (8-16); BILIRUBIN - TOTAL 1.23 mg/dL (0.2-1.3); CALCIUM 7.8 mg/dL (8.5-10.1); CARBON DIOXIDE 19.3 mmol/L (21.0-32.0); CREATININE - SERUM 2.4 mg/dL (0.6-1.3); POTASSIUM - SERUM 4.8 mmol/L (3.5-5.1); PROTEIN - SERUM 4.4 g/dL (6.4-8.2); VANCOMYCIN - RANDOM 16.3 ug/mL (10.0-20.0)
--- NOTE | 2019-10-23 16:15 | NUR ---
I'S AND O'S DONE ON PT. CATHETER LEAKED SOME URINE. ABOUT 200ML OUTPUT. NGT HOOKED UP TO LIS. SOME GREEN STOMACH CONTENTS NOTED TO NG CANISTER. VSS.
--- NOTE | 2019-10-23 20:29 | NUR ---
spoke with family regarding zbigniew's note of poor prognosis. update given. family seems understanding of patient status. tripphayde clearly stated she did not want him on dialysis because thats not what he wanted
--- NOTE | 2019-10-23 21:12 | NUR ---
family called. update given.
[2019-10-24] VITALS (24 sets, daily range): BP systolic 96–126; BP diastolic 55–76
[2019-10-24 04:27] LABS: BASOPHILS 0.3 % (0-2); EOSINOPHILS 4.7 % (0-7); HEMATOCRIT 25.7 % (42.0-54.0); HEMOGLOBIN 8.1 g/dL (13.5-17.5); IMMATURE GRANULOCYTES 9.4 % (0-5); LYMPHOCYTES 6.5 % (15-50); MCH 31.5 pg (26.0-34.0); MCHC 31.5 g/dL (31.0-37.0); MEAN PLATELET VOLUME 8.9 fL (7.4-10.4); MONOCYTES 7.1 % (2-11); PLATELET COUNT 423 10x3/uL (130-400); RBC 2.57 10x6/uL (4.20-6.10); RDW 14.7 % (11.5-14.5); WBC 13.3 10x3/uL (4.8-10.8)
[2019-10-24 04:46] LABS: ANION GAP 14.9 mmol/L (8-16); BILIRUBIN - TOTAL 1.38 mg/dL (0.2-1.3); CALCIUM 8.3 mg/dL (8.5-10.1); CARBON DIOXIDE 19.7 mmol/L (21.0-32.0); CREATININE - SERUM 2.6 mg/dL (0.6-1.3); POTASSIUM - SERUM 4.6 mmol/L (3.5-5.1); PROTEIN - SERUM 5.3 g/dL (6.4-8.2)
--- NOTE | 2019-10-24 07:00 | NUR ---
RECEIVED BEDSIDE REPORT ON PATIENT AND ASSUMED CARE. PATIENT SEDATED ON VENT, SETTINGS AC 20, TV 500, PEEP 8, FIO2 50%. BBS - CLEAR AND EQUAL, DIMINISHED IN THE BASES. CM - SR WITH BBB RATE 85, SPO2 -95%. NG TUBE TO LEFT NARE TO LIWS, PLACEMENT VERIFED VIA ASCULTATION, GREENISH DRAINAGE NOTED. COLOSTOMY BAG NOTED TO LLQ, WITH STOMA PINK. SNIDER CATH IN PLACE WITH 115 ML OF CLEAR YELLOW UOP NOTED. PATIENT TURNED AND REPOSITIONED IN BED. VSS.
--- NOTE | 2019-10-24 08:56 | NUR ---
SPOKE TO PATIENTS DAUGHTER, UPDATED AND QUESTIONS ANSWERED.
--- NOTE | 2019-10-24 08:59 | NUR ---
PATIENT TURNED AND REPOSITIONED IN BED. VSS. MORNING MEDS PER MAR.
--- NOTE | 2019-10-24 10:50 | NUR ---
PATIENT GIVEN COMPLETE BATH, LINENS CHANGED, TURNED AND REPOSITIONED IN BED. VSS. REASSESSMENT COMPLETE WITH NO CHANGES.
--- NOTE | 2019-10-24 12:53 | NUR ---
CALLED AND SPOKE TO PATEINTS DAUGHTER ALVARO, UPDATED AND QUESTIONS ANSWERED.
--- NOTE | 2019-10-24 15:02 | NUR ---
VANC TROUGH OF 23.1 CALLED TO PHARMACIST HENRRY, TO HOLD 1400 DOSE OF VANCOMYCIN WILL BE RETIMED.
--- NOTE | 2019-10-24 15:24 | NUR ---
REASSESSMENT COMPLETED. VSS. PATIENT TURNED AND REPOSITIONED IN BED.
--- NOTE | 2019-10-24 17:05 | NUR ---
PATIENT TURNED AND REPOSITIONED IN BED. VSS.
--- NOTE | 2019-10-24 17:43 | NUR ---
PATIENTS DAUGHTER ALVARO AT ROOM UPDATED AND QUESTIONS ANSWERED.
--- NOTE | 2019-10-24 18:42 | NUR ---
PATIENTS DAUGHTER WANTS TO MAKE THE PATIENT A DNR BUT TO CONTINUE TREATMENT. WANTS TO TALK TO THE DOCTORS REGARDING PROGNOSIS AND DIALYSIS AFTER MORNING LABS TOMORROW.
--- NOTE | 2019-10-24 19:00 | NUR ---
RECEIVED REPORT FROM OFFGOING NURSE. PATIENT IN BED. ASSESSMENT COMPLETE.
--- NOTE | 2019-10-24 19:01 | NUR ---
SPOKE TO DR. DIGGS REGARDING PATIENTS DAUGHTERS WISH TO MAKE PATIENT A DNR AND TO SPEAK WITH THE DOCTOR IN THE AM REGARDING HIS KIDNEY FUNCTION AFTER MORNING LABS ARE RESULTED AND TO MAKE DECISION ABOUT DIALYSIS TOMORROW MORNING. OK TO PLACE DNR ORDER.
[2019-10-25] VITALS (18 sets, daily range): BP systolic 77–115; BP diastolic 54–79
[2019-10-25 06:50] LABS: ALBUMIN 1.1 g/dL (3.4-5.0); ANION GAP 16.5 mmol/L (8-16); BILIRUBIN - TOTAL 1.27 mg/dL (0.2-1.3); CALCIUM 8.3 mg/dL (8.5-10.1); CARBON DIOXIDE 17.4 mmol/L (21.0-32.0); CREATININE - SERUM 2.7 mg/dL (0.6-1.3); POTASSIUM - SERUM 4.9 mmol/L (3.5-5.1); PROTEIN - SERUM 5.5 g/dL (6.4-8.2); VANCOMYCIN - RANDOM 22.2 ug/mL (10.0-20.0)
[2019-10-25 07:54] LABS: BASOPHILS 0.8 % (0-2); EOSINOPHILS 3.5 % (0-7); IMMATURE GRANULOCYTES 10.7 % (0-5); LYMPHOCYTES 16.8 % (15-50); MCH 31.7 pg (26.0-34.0); MCHC 31.3 g/dL (31.0-37.0); MEAN PLATELET VOLUME 9.6 fL (7.4-10.4); MONOCYTES 7.2 % (2-11); RDW 14.9 % (11.5-14.5)
[2019-10-25 07:56] LABS: HEMATOCRIT 40.2 % (42.0-54.0); HEMOGLOBIN 12.6 g/dL (13.5-17.5); PLATELET COUNT 300 10x3/uL (130-400); RBC 3.98 10x6/uL (4.20-6.10); WBC 7.9 10x3/uL (4.8-10.8)
--- NOTE | 2019-10-25 13:21 | NUR ---
Nutrition follow-up: Intubated, sedated with propofol @ 6.3 ml/hr NGT->LIWS; Pulmocare off 2/2 possible aspiration per RN. labs reviewed No BSS; colostomy with no output Recommend motility agent and TF restarted RDN following.
--- NOTE | 2019-10-25 13:46 | NUR ---
RESPIRATORY THERAPY IN ROOM AT BEDSIDE TO EXTUBATE PATIENT. PATIENT EXTUBATED. PROPOFOL/FENTANYL STOPPED PRIOR TO EXTUBATION. PATIENT EYES ARE OPEN BUT DOES NOT FOLLOW COMMANDS. FAMILY AT DOOR AWAITING TO COME IN WITH PATIENT.
--- NOTE | 2019-10-25 20:05 | NUR ---
CALLED [facility]EN AT 2005 FOR TIME OF OF 1954. NOT CANDIDATE. SEE RECORD OF .
--- NOTE | 2019-10-25 21:09 | NUR ---
SPOKE TO HOME REMY AND SOMEONE WILL BE CONTACTING US REGARDING PICKING UP THE PT
--- NOTE | 2019-10-25 22:32 | NUR ---
home signed and provided copy of record of
[2019-10-29 18:08] LABS: AEROBE ID Final report (())
== END 2019-10-25 22:33 | DRG 853 ==
LOC: D.ER 22:51 → D.ICU 23:56
PROVIDERS: Family Medicine; Internal Medicine Cardiovascular Disease; Internal Medicine Pulmonary Disease; ADMIT Family Medicine; ATTEND Family Medicine
PROC: 5A1955Z Respiratory Ventilation, Greater than 96 Consecutive Hours (ICD-10-PCS; 2019-10-15)
PROC: 05HY33Z Insertion of Infusion Device into Upper Vein, Percutaneous Approach (ICD-10-PCS; 2019-10-17)
PROC: 0B9J8ZX Drainage of Left Lower Lung Lobe, Via Natural or Artificial Opening Endoscopic, Diagnostic (ICD-10-PCS; 2019-10-19)
PROC: B2151ZZ Fluoroscopy of Left Heart using Low Osmolar Contrast (ICD-10-PCS; 2019-10-20)
PROC: 4A023N7 Measurement of Cardiac Sampling and Pressure, Left Heart, Percutaneous Approach (ICD-10-PCS; 2019-10-20)
PROC: 02703EZ Dilation of Coronary Artery, One Artery with Two Intraluminal Devices, Percutaneous Approach (ICD-10-PCS; principal; 2019-10-20 11:15)
PROC: B2111ZZ Fluoroscopy of Multiple Coronary Arteries using Low Osmolar Contrast (ICD-10-PCS; 2019-10-20 11:15)
DX: A41.9 Sepsis, unspecified organism (principal); J96.01 Acute respiratory failure with hypoxia; I21.4 Non-ST elevation (NSTEMI) myocardial infarction; J18.9 Pneumonia, unspecified organism; I50.21 Acute systolic (congestive) heart failure; R65.21 Severe sepsis with septic shock; R53.2 Functional quadriplegia; J81.1 Chronic pulmonary edema; D68.9 Coagulation defect, unspecified; E87.1 Hypo-osmolality and hyponatremia; N39.0 Urinary tract infection, site not specified; E87.2 Acidosis; N17.9 Acute kidney failure, unspecified; I44.7 Left bundle-branch block, unspecified; D64.9 Anemia, unspecified; R73.9 Hyperglycemia, unspecified; T17.990A Other foreign object in respiratory tract, part unspecified in causing asphyxiation, initial encounter